=== PATIENT | female | born 1995 | race Caucasian/White ===

== ENCOUNTER → 2018-06-23 | Emergency (ER) | payer OTHER ==
--- NOTE | 2018-06-23 12:36 | RAD ---
Indication: Right foot injury. 3 views of the right foot demonstrate no fracture or dislocation. No other bone or joint abnormality is identified. IMPRESSION: No fracture of the right foot is noted.
[2018-06-23 13:30] VITALS: BP 137/90
--- NOTE | 2018-06-23 16:04 | ED ---
Lower Extremity - HPI Summary HPI Summary: Patient is a 22-year-old female who presents emergency department for evaluation of splint on right foot. Patient states she is visiting a friend in the area for the weekend and is from [place]. She states on she tripped wearing high heels and injured her right foot. She went to a local ER yesterday and was diagnosed with a foot fracture. Posterior splint and crutches were placed. Patient states that splint is digging into the right side of her heel giving her a lot of pain. Patient presents to the ER requesting to have splint changed. Patient also states that she has hyperhidrosis and splint is very uncomfortable. Symptoms are mild in severity. No current modifying factors. Denies new injury. - History of Current Complaint Chief Complaint: EDExtremityLower Stated Complaint: BROKEN RT FOOT-PROBS W CAST Time Seen by Provider: 06/23/18 10:38 Hx Obtained From: Patient Pain Intensity: 5 Pain Scale Used: 0-10 Numeric - Allergies/Home Medications Allergies/Adverse Reactions: Allergies Allergy/AdvReac Type Severity Reaction Status Date / Time adhesive tape Allergy Hives Verified 06/23/18 10:16 latex Allergy Hives Verified 06/23/18 10:16 Home Medications: Home Medications Bupropion XL* [Wellbutrin XL *] 300 mg PO DAILY 06/23/18 [History Confirmed ] Methylphenidate HCl [Concerta] 36 mg PO BID 06/23/18 [History Confirmed 06/23/18 ] PMH/Surg Hx/FS Hx/Imm Hx Previously Healthy: Yes Infectious Disease History: No Infectious Disease History: Reports: Traveled Outside the [place] in Last 30 Days - [place] - Family History Known Family History: Positive: Other - noncontributory - Social History Occupation: Student Lives: With Family Alcohol Use: Occasionally Substance Use Type: Reports: None Smoking Status (MU): Never Smoked Tobacco Review of Systems Positive: Other - right foot pain. Neurological: Negative Negative: Weakness, Paresthesia, Numbness All Other Systems Reviewed And Are Negative: Yes Physical Exam Triage Information Reviewed: Yes Vital Signs On Initial Exam: Initial Vitals Temp Pulse Resp BP Pulse Ox 97.2 F 119 16 142/99 99 06/23/18 10:17 06/23/18 10:17 06/23/18 10:17 06/23/18 10:17 06/23/18 10:17 Vital Signs Reviewed: Yes Appearance: Positive: Well-Appearing - Pt.lying in bed in NAD. Friend present. Skin: Positive: Warm, Dry Head/Face: Positive: Normal Head/Face Inspection Eyes: Positive: Normal, EOMI Neck: Positive: Supple Musculoskeletal: Positive: Other - Posterior splint removed from right foot. Good palpable. Calf is soft without edema. Small area of redness noted to the right lateral heel without blistering or breakdown of the skin. Neurological: Positive: Normal, CN Intact II-III Procedures - Splinting Right Lower Extremity Pre-Made Type: aidan wrap and post op shoe Diagnostics - Vital Signs Vital Signs Temp Pulse Resp BP Pulse Ox 06/23/18 13:29 98.7 F 98 16 137/90 98 06/23/18 10:17 97.2 F 119 16 142/99 99 - Laboratory Lab Statement: Any lab studies that have been ordered have been reviewed, and results considered in the medical decision making process. Lower Extremity Course/Dx - Course Course Of Treatment: Patient presenting with reevaluation of right foot fracture. Patient does not want to have another Ortho-Glass posterior splint placed because of excessive sweating. Explained patient is unsure what her foot fracture is and should not change treatment. Patient agrees to repeat x- ray. X-ray per radiologist is negative for fracture or acute findings. This was explained to patient. We'll place an Aidan wrap and postop shoe. Advised to use crutches. Advised to follow up with orthopedics as scheduled for reevaluation. To ice and elevate. Tylenol or Motrin for pain as directed. Patient understands and agrees with plan. - Diagnoses Provider Diagnoses: Foot sprain Discharge - Sign-Out/Discharge Documenting (check all that apply): Patient Departure - Discharge Plan Condition: Good Disposition: HOME Patient Education Materials: Foot Sprain (ED) Referrals: No Primary Care Phys,NOPCP [Primary Care Provider] - Additional Instructions: Follow up with orthopedics as scheduled Ice and elevate Tylenol or Motrin for pain as directed Use crutches if needed - Billing Disposition and Condition Condition: GOOD Disposition: Home
== END | disposition home or self-care (01) ==
LOC: ED 10:12
DX: S93.601A Unspecified sprain of right foot, initial encounter (principal); W18.40XA Slipping, tripping and stumbling without falling, unspecified, initial encounter; Y92.9 Unspecified place or not applicable; Z91.040 Latex allergy status; Z91.048 Other nonmedicinal substance allergy status
CPT/HCPCS: 99282